=== PATIENT | male | born 2005 | race Two or more races ===

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

== ENCOUNTER 2023-07-03 20:03 | Emergency (ER) | payer OTHER ==
[2023-07-03 20:32] VITALS: BMI 24.7
[2023-07-03] MEDS ORDERED: ONDANSETRON 4 MG/2 ML VIAL ONE (21:26)
[2023-07-03] MEDS ORDERED: ACETAMINOPHEN INJECTION 100 ML IVPB ONE (21:26)
[2023-07-03] MEDS ORDERED: KETOROLAC TROMETHAMINE 15 MG/ML VIAL ONE (21:26)
[2023-07-03] MEDS: SODIUM CHLORIDE 0.9% 500 ML INFUS.BAG IV ONE (21:32)
[2023-07-03] MEDS: ONDANSETRON 4 MG/2 ML VIAL IVPUSH ONE (21:33)
[2023-07-03] MEDS: ACETAMINOPHEN 1000 MG/100 ML BAG IVPB ONE (21:33)
[2023-07-03] MEDS: KETOROLAC TROMETHAMINE 15 MG/ML VIAL IVPUSH ONE (21:33)
[2023-07-03 22:38] VITALS: BP 100/50; PULSE 101; RESP 18; TEMP 100
== END 2023-07-03 22:49 | disposition home or self-care (01) ==
LOC: JER 20:03
PROC: 3E030NZ Introduction of Analgesics, Hypnotics, Sedatives into Peripheral Vein, Open Approach (ICD-10-PCS; principal; 2023-07-03)
PROC: 3E0303Z Introduction of Anti-inflammatory into Peripheral Vein, Open Approach (ICD-10-PCS; 2023-07-03)
PROC: 3E030GC Introduction of Other Therapeutic Substance into Peripheral Vein, Open Approach (ICD-10-PCS; 2023-07-03)
DX: R50.9 Fever, unspecified (principal); R05.9 Cough, unspecified; R53.81 Other malaise; J10.1 Influenza due to other identified influenza virus with other respiratory manifestations; Z20.822 Contact with and (suspected) exposure to COVID-19
CPT/HCPCS: 0241U-QW; 96374; 96375; 99284-25; J0131